=== PATIENT | female | born 2000 | race Caucasian/White ===

== ENCOUNTER 2018-11-22 07:06 | Emergency (ER) | payer OTHER ==
--- NOTE | 2018-11-22 07:26 | EDM.PDOC ---
ED HPI GENERAL MEDICAL PROBLEM - General Chief Complaint: Lower Extremity Injury/Pain Stated Complaint: LT BIG TOE INJURY Time Seen by Provider: 11/22/18 07:17 - History of Present Illness INITIAL COMMENTS - FREE TEXT/NARRATIVE: 17-year-old female presents emergency room with injury to right great toe. Patient in a coworker were moving a heavy beam the coworker dropped her partner to beam. The patient tried to get her foot out of the way however the being still caught her great toe at the end. This occurred about 6 hours ago. The patient has had increasing discomfort in the area of the toenail.. She's up-to- date on her tetanus she denies any . No existing medical problems. Left Toe-Hailux Pain Score (Numeric/FACES): 7 - Related Data Allergies Allergy/AdvReac Type Severity Reaction Status Date / Time No Known Allergies Allergy Verified 11/22/18 07:20 Home Meds: Home Meds . [No Known Home Meds] 12/27/15 [History] Past Medical History - Past Health History Medical/Surgical History: Denies Medical/Surgical History Review of Systems - Review of Systems Review Of Systems: See Below Constitutional: Reports: No Symptoms Respiratory: Reports: No Symptoms Cardiovascular: Reports: No Symptoms GI/Abdominal: Reports: No Symptoms ED EXAM, GENERAL - Physical Exam Exam: See Below Exam Limited By: No Limitations General Appearance: Alert, No Apparent Distress Respiratory/Chest: No Respiratory Distress, Lungs Clear, Normal Breath Sounds Cardiovascular: Regular Rate, Rhythm, No Edema, No Murmur Extremities: Other (Examination right great toe shows normal neurologic status she can flex it and extended with some discomfort she has some swelling and ecchymosis developing she has nail kazakh on at this time but the exposed part of the nail looks like she could have a hematoma under the great toenail) Course - Vital Signs Last Recorded V/S: Last Vital Signs Temp 36.8 C 11/22/18 07:10 Pulse 80 11/22/18 07:10 Resp 16 11/22/18 07:10 BP 129/71 11/22/18 07:10 Pulse Ox 98 11/22/18 07:10 - Orders/Labs/Meds Orders: Active Orders 24 hr Category Date Time Status Toes Great Toe Lt TA [CR] Stat Exams 11/22/18 07:26 Taken Durable Medical Equipment for Discharge [DME for Oth 11/22/18 08:01 Ordered Discharge] [COMM] Stat - Re-Assessments/Exams Free Text/Narrative Re-Assessment/Exam: 11/22/18 08:02 Negative x-ray for fracture or acute bony changes she has mild soft tissue swelling seen. Nail kazakh was removed and no obvious hematoma. Patient will be placed in a postop shoe to facilitate ambulation Departure - Departure Time of Disposition: 08:06 Disposition: Home, Self-Care 01 Clinical Impression: Contusion of right great toe without damage to nail - Discharge Information Referrals: Ping Morgan PA-C [Primary Care Provider] - Forms: ED Department Discharge Additional Instructions: Return to the emergency room with any questions problems worsening symptoms. Follow-up with the labor and industry physician early next week if needed. Ibuprofen or naproxen as needed for discomfort taking either of these with food do not take both of these together. Wear the postop shoe as needed. - My Orders Last 24 Hours: My Active Orders 11/22/18 07:26 Toes Great Toe Lt TA [CR] Stat 11/22/18 08:01 Durable Medical Equipment for Discharge [DME for Discharge] [COMM] Stat - Assessment/Plan Last 24 Hours: My Active Orders 11/22/18 07:26 Toes Great Toe Lt TA [CR] Stat 11/22/18 08:01 Durable Medical Equipment for Discharge [DME for Discharge] [COMM] Stat
[2018-11-22 09:00] VITALS: BP 132/73
--- NOTE | 2018-11-22 09:15 | CR ---
Left first toe: Three views centered to the left first toe were obtained. Comparison: No prior foot or toe exam. Slight cortical irregularity within the lateral corner base of the distal phalanx of the first toe. Difficult to exclude small nondisplaced chip fracture. No additional bony abnormality is seen. Soft tissue swelling is noted. Impression: 1. Questionable nondisplaced fracture as noted above. Soft tissue swelling. Diagnostic code #3
== END 2018-11-22 08:15 | disposition home or self-care (01) ==
LOC: JD.ED 07:06
DX: S90.111A Contusion of right great toe without damage to nail, initial encounter (principal); W20.8XXA Other cause of strike by thrown, projected or falling object, initial encounter; Y99.0 Civilian activity done for income or pay
CPT/HCPCS: 73660-26-TA; 73660-TA; 99282; 99283-25

== ENCOUNTER 2019-01-05 09:00 | Emergency (ER) | payer BC, OTHER ==
[2019-01-05 09:12] VITALS: BP 116/67
[2019-01-05] MEDS ORDERED: Sodium Chloride 0.9% 10 ML Syringe FLUSH PRN (09:20)
[2019-01-05] MEDS ORDERED: Ondansetron 4 MG/2 ML SDV IVPUSH ONE (09:20)
[2019-01-05] MEDS ORDERED: Sodium Chloride 0.9% 1,000 ML IV STA (09:20)
[2019-01-05] MEDS ORDERED: HYDROmorphone 0.5 MG/0.5 ML Syringe IVPUSH ONE (09:22)
[2019-01-05] MEDS ORDERED: Iopamidol 755 Mg/ML 200 ML Bottle IV ONE (10:39)
[2019-01-05] MEDS ORDERED: Sodium Chloride 0.9% 10 ML Syringe FLUSH ONE (10:39)
[2019-01-05] MEDS ORDERED: Diatrizoate Meglumine/Diatrizoate Sodium 37% 120 ML Bottle PO ONE (10:39)
--- NOTE | 2019-01-05 10:50 | EDM.PDOC ---
ED HPI GENERAL MEDICAL PROBLEM - General Chief Complaint: Abdominal Pain Stated Complaint: ABDOMINAL PAIN AND FEVER Time Seen by Provider: 01/05/19 09:13 Source of Information: Reports: Patient History Limitations: Reports: No Limitations - History of Present Illness INITIAL COMMENTS - FREE TEXT/NARRATIVE: The patient presents with abdominal pain and nausea. This started last night at 10. It was more severe at 3am. She has chills but no fever. She has nausea but no vomiting. She has no chest pain or shortness of breath. She has no dysuria or diarrhea. She still has her gallbladder and appendix. She did not eat any bad food and she has not been around anyone who is sick. Onset: Gradual Duration: Day(s): (Last night at 10am) Location: Reports: Abdomen Quality: Reports: Sharp Severity: Moderate Improves with: Reports: None Worsens with: Reports: None Associated Symptoms: Reports: Fever/Chills, Nausea/Vomiting. Denies: Chest Pain , Cough, Headaches, Shortness of Breath Treatments ELECTORATE OFFICER: Reports: Acetaminophen Lower Abdomen Pain Score (Numeric/FACES): 6 - Related Data Allergies Allergy/AdvReac Type Severity Reaction Status Date / Time No Known Allergies Allergy Verified 01/05/19 09:11 Home Meds: Home Meds Ondansetron [Zofran ODT] 4 mg PO Q6H PRN #20 tab.dis 01/05/19 [Rx] Past Medical History - Past Health History Medical/Surgical History: Denies Medical/Surgical History Social & Family History - Tobacco Use Smoking Status *Q: Never Smoker - Caffeine Use Caffeine Use: Reports: Soda - Recreational Drug Use Recreational Drug Use: No ED ROS GENERAL - Review of Systems Review Of Systems: See Below Constitutional: Reports: Chills. Denies: Fever HEENT: Reports: No Symptoms Respiratory: Reports: No Symptoms Cardiovascular: Reports: No Symptoms Endocrine: Reports: No Symptoms GI/Abdominal: Reports: Abdominal Pain, Nausea. Denies: Diarrhea, Vomiting : Reports: No Symptoms ED EXAM, GI/ABD - Physical Exam Exam: See Below Exam Limited By: No Limitations General Appearance: Alert, No Apparent Distress Ears: Normal External Exam Nose: Normal Inspection Head: Atraumatic, Normocephalic Neck: Normal Inspection Respiratory/Chest: No Respiratory Distress, Lungs Clear, Normal Breath Sounds Cardiovascular: Regular Rate, Rhythm, No Edema, No Murmur GI/Abdominal Exam: Soft, No Organomegaly, No Mass, Tender (Moderate tenderness to the epigastric region and to the right lower abdomen) Course - Vital Signs Last Recorded V/S: Last Vital Signs Temp 99.6 F 01/05/19 09:08 Pulse 109 H 01/05/19 09:08 Resp 18 01/05/19 09:08 BP 116/67 01/05/19 09:08 Pulse Ox 96 01/05/19 09:08 - Orders/Labs/Meds Orders: Active Orders 24 hr Category Date Time Status Peripheral IV Care [RC] . DIRECTED Care 01/05/19 09:21 Active Abdomen Pelvis w Cont [CT] Stat Exams 01/05/19 09:20 Taken Sodium Chloride 0.9% [Saline Flush] Med 01/05/19 09:20 Active 10 ml FLUSH ASDIRECTED PRN ED Antiemetic Medication Reflex [OM.PC] Stat Oth 01/05/19 09:21 Ordered Peripheral IV Insertion Adult [OM.PC] Stat Oth 01/05/19 09:20 Ordered Medication Orders Sodium Chloride (Saline Flush) 10 ml FLUSH ASDIRECTED PRN PRN Reason: Keep Vein Open Last Admin: 01/05/19 09:34 Dose: 10 ml Labs: Laboratory Tests 01/05/19 01/05/19 01/05/19 Range/Units 09:30 09:30 09:30 WBC 10.75 H (3.98-10.04) K/mm3 RBC 4.47 (3.98-5.22) M/mm3 Hgb 12.8 (11.2-15.7) gm/L Hct 37.7 (34.1-44.9) % MCV 84.3 (79.4-94.8) fl MCH 28.6 (25.6-32.2) pg MCHC 34.0 (32.2-35.5) g/dl RDW Std Deviation 41.4 (36.4-46.3) fL Plt Count 235 (182-369) K/mm3 MPV 8.1 L (9.4-12.3) fl Neut % (Auto) 90.1 H (34.0-71.1) % Lymph % (Auto) 3.9 L (19.3-51.7) % [place] % (Auto) 5.4 (4.7-12.5) % Eos % (Auto) 0.2 L (0.7-5.8) Baso % (Auto) 0.1 (0.1-1.2) % Neut # (Auto) 9.69 H (1.56-6.13) K/mm3 Lymph # (Auto) 0.42 L (1.18-3.74) K/mm3 [place] # (Auto) 0.58 H (0.24-0.36) K/mm3 Eos # (Auto) 0.02 L (0.04-0.36) K/mm3 Baso # (Auto) 0.01 (0.01-0.08) K/mm3 Manual Slide Review Abnormal smear Sodium 136 (136-145) mEq/L Potassium 4.0 (3.5-5.1) mEq/L Chloride 104 (98-107) mEq/L Carbon Dioxide 24 (21-32) mEq/L Anion Gap 12.0 (5-15) BUN 17 (7-18) mg/dL Creatinine 0.8 (0.55-1.02) mg/dL Est Cr Clr Drug Dosing 97.99 mL/min Estimated GFR (MDRD) > 60 (>60) mL/min BUN/Creatinine Ratio 21.3 H (14-18) Glucose 119 H (74-106) mg/dL Calcium 8.9 (8.5-10.1) mg/dL Total Bilirubin 0.9 (0.2-1.0) mg/dL AST 15 (15-37) U/L ALT 19 (14-59) U/L Alkaline Phosphatase 54 (46-116) U/L Total Protein 7.2 (6.4-8.2) g/dl Albumin 4.2 (3.4-5.0) g/dl Globulin 3.0 gm/dL Albumin/Globulin Ratio 1.4 (1-2) Lipase 79 (73-393) U/L HCG, Qual Negative (NEGATIVE) Urine Color (Yellow) Urine Appearance (Clear) Urine pH (5.0-8.0) Ur Specific [employer] (1.005-1.030) Urine Protein (Negative) Urine Glucose (UA) (Negative) Urine Ketones (Negative) Urine Occult Blood (Negative) Urine Nitrite (Negative) Urine Bilirubin (Negative) Urine Urobilinogen (0.2-1.0) Ur Leukocyte Esterase (Negative) Urine RBC (0-5) /hpf Urine WBC (0-5) /hpf Ur Epithelial Cells (0-5) /hpf Amorphous Sediment (NOT SEEN) /hpf Urine Bacteria (FEW) /hpf Urine Mucus (FEW) /hpf 01/05/19 Range/Units 10:15 WBC (3.98-10.04) K/mm3 RBC (3.98-5.22) M/mm3 Hgb (11.2-15.7) gm/L Hct (34.1-44.9) % MCV (79.4-94.8) fl MCH (25.6-32.2) pg MCHC (32.2-35.5) g/dl RDW Std Deviation (36.4-46.3) fL Plt Count (182-369) K/mm3 MPV (9.4-12.3) fl Neut % (Auto) (34.0-71.1) % Lymph % (Auto) (19.3-51.7) % [place] % (Auto) (4.7-12.5) % Eos % (Auto) (0.7-5.8) Baso % (Auto) (0.1-1.2) % Neut # (Auto) (1.56-6.13) K/mm3 Lymph # (Auto) (1.18-3.74) K/mm3 [place] # (Auto) (0.24-0.36) K/mm3 Eos # (Auto) (0.04-0.36) K/mm3 Baso # (Auto) (0.01-0.08) K/mm3 Manual Slide Review Sodium (136-145) mEq/L Potassium (3.5-5.1) mEq/L Chloride (98-107) mEq/L Carbon Dioxide (21-32) mEq/L Anion Gap (5-15) BUN (7-18) mg/dL Creatinine (0.55-1.02) mg/dL Est Cr Clr Drug Dosing mL/min Estimated GFR (MDRD) (>60) mL/min BUN/Creatinine Ratio (14-18) Glucose (74-106) mg/dL Calcium (8.5-10.1) mg/dL Total Bilirubin (0.2-1.0) mg/dL AST (15-37) U/L ALT (14-59) U/L Alkaline Phosphatase (46-116) U/L Total Protein (6.4-8.2) g/dl Albumin (3.4-5.0) g/dl Globulin gm/dL Albumin/Globulin Ratio (1-2) Lipase (73-393) U/L HCG, Qual (NEGATIVE) Urine Color Yellow (Yellow) Urine Appearance Clear (Clear) Urine pH 7.0 (5.0-8.0) Ur Specific [employer] 1.020 (1.005-1.030) Urine Protein 1+ H (Negative) Urine Glucose (UA) Negative (Negative) Urine Ketones Trace H (Negative) Urine Occult Blood Negative (Negative) Urine Nitrite Negative (Negative) Urine Bilirubin 1+ H (Negative) Urine Urobilinogen 2.0 H (0.2-1.0) Ur Leukocyte Esterase Negative (Negative) Urine RBC 0-5 (0-5) /hpf Urine WBC 0-5 (0-5) /hpf Ur Epithelial Cells 5-10 H (0-5) /hpf Amorphous Sediment Few H (NOT SEEN) /hpf Urine Bacteria Few H (FEW) /hpf Urine Mucus Moderate H (FEW) /hpf Meds: Medications Generic Name Dose Route Start Last Admin Trade Name Freq PRN Reason Stop Dose Admin Sodium Chloride 10 ml 01/05/19 09:20 01/05/19 09:34 Saline Flush FLUSH 10 ml ASDIRECTED PRN Administration Keep Vein Open Discontinued Medications Generic Name Dose Route Start Last Admin Trade Name Freq PRN Reason Stop Dose Admin Diatrizoate Meglum/Diatrizoate Sod 90 ml 01/05/19 10:39 01/05/19 11:01 Gastrografin 37% PO 01/05/19 10:40 90 ml ONETIME ONE Administration Hydromorphone HCl 0.5 mg 01/05/19 09:22 01/05/19 09:34 Dilaudid IVPUSH 01/05/19 09:23 0.5 mg ONETIME ONE Administration Sodium Chloride 1,000 mls @ 1,000 mls/hr 01/05/19 09:20 01/05/19 09:34 Normal Saline IV 01/05/19 10:19 1,000 mls/hr .BOLUS STA Administration Iopamidol 100 ml 01/05/19 10:39 01/05/19 11:01 Isovue-370 (76%) IV 01/05/19 10:40 93 ml ONETIME ONE Administration Ondansetron HCl 4 mg 01/05/19 09:20 01/05/19 09:34 Zofran IVPUSH 01/05/19 09:21 4 mg ONETIME ONE Administration Sodium Chloride 10 ml 01/05/19 10:39 01/05/19 11:01 Saline Flush FLUSH 01/05/19 10:40 10 ml ONETIME ONE Administration - Re-Assessments/Exams Free Text/Narrative Re-Assessment/Exam: 01/05/19 11:20 I ordered an IV NS 1L bolus, zofran 4mg IV, dilaudid 1mg, labs, UA and a CT of her abdomen and pelvis. Her WBC was elevated at 10.75. Her CMP looks good. Her Hcg is negative. He lipase was normal. Her UA shows no UTI. 01/05/19 11:[address] shows bowel wall thickening in the rectosigmoid may represent colitis versus decompressed bowel. Mild amount of free fluid in the pelvis. These findings do not correlate with my physical findings. She may have the start of some gastroenteritis. I will give her some zofran and supportive care. Departure - Departure Time of Disposition: 11:50 Disposition: Home, Self-Care 01 Condition: Good Clinical Impression: Gastroenteritis - Discharge Information *PRESCRIPTION DRUG MONITORING PROGRAM REVIEWED*: Not Applicable *COPY OF PRESCRIPTION DRUG MONITORING REPORT IN PATIENT JASON: Not Applicable Prescriptions: Ondansetron [Zofran ODT] 4 mg PO Q6H PRN #20 tab.dis PRN Reason: Nausea\vomiting Referrals: PCP,Unknown [Primary Care Provider] - Forms: ED Department Discharge, ED Return to Work/School Form Additional Instructions: Drink plenty of fluids. Take tylenol or motrin for pain. Take zofran every 6 hours as needed for nausea and vomiting. Please return if you are worse. - My Orders Last 24 Hours: My Active Orders 01/05/19 09:20 Abdomen Pelvis w Cont [CT] Stat Sodium Chloride 0.9% [Saline Flush] 10 ml FLUSH ASDIRECTED PRN Peripheral IV Insertion Adult [OM.PC] Stat 01/05/19 09:21 Peripheral IV Care [RC] . DIRECTED ED Antiemetic Medication Reflex [OM.PC] Stat - Assessment/Plan Last 24 Hours: My Active Orders 01/05/19 09:20 Abdomen Pelvis w Cont [CT] Stat Sodium Chloride 0.9% [Saline Flush] 10 ml FLUSH ASDIRECTED PRN Peripheral IV Insertion Adult [OM.PC] Stat 01/05/19 09:21 Peripheral IV Care [RC] . DIRECTED ED Antiemetic Medication Reflex [OM.PC] Stat
--- NOTE | 2019-01-06 06:43 | CT ---
CT abdomen and pelvis Technique: Multiple axial sections were obtained from above the dome of the diaphragm inferiorly through the pubic symphysis. Intravenous and oral contrast was utilized. Comparison: No prior abdominal imaging. Findings: Small portion of the visualized lung bases are clear. Liver contains no focal abnormality. Gallbladder contains no calcified gallstones. Spleen appears within normal limits. Kidneys show symmetric contrast enhancement without hydronephrosis or mass. Pancreas appears within normal limits. Aorta shows no aneurysm. No retroperitoneal adenopathy or mesenteric abnormalities are seen. No pelvic mass or adenopathy is seen. There is mild amount of free fluid within the pelvis most likely due to follicle rupture or nonvisualized cyst rupture. Appendix is seen which is normal. Slight bowel wall thickening seen within the sigmoid colon which is most likely due to lack of distention. No free fluid or inflammatory change is seen. Bone window settings were reviewed which appear within normal limits for the patient's age. Impression: 1. Mild amount of free fluid within the pelvis most likely due to follicle rupture or nonvisualized cyst rupture. 2. Wall thickening believed to be due to lack of distention within the sigmoid colon. 3. No additional abnormality is appreciated on CT study of the abdomen and pelvis. Diagnostic code #2 I agree with preliminary report from [facility], finalized on 01/05/19, 12:40 PM Central Time
== END 2019-01-05 12:09 | disposition home or self-care (01) ==
LOC: JD.ED 09:00
DX: K52.9 Noninfective gastroenteritis and colitis, unspecified (principal)
CPT/HCPCS: 36415; 74177; 80053; 81001; 83690; 84703; 85025; 96361; 96374; 96375; 99284; J1170; J2405; J7040; Q9963; Q9967